=== PATIENT | female | born 1970 | race African-American/Black ===

== ENCOUNTER 2018-09-28 20:21 | Emergency (ER) | payer OTHER, SELFPAY ==
[2018-09-28 20:36] VITALS: BP 157/97; RESP 80; TEMP 36.6; O2SAT 100; BMI 33.8
--- NOTE | 2018-09-28 20:40 | DI.RAD.S_ITS ---
PROCEDURE: XR KNEE RT 3V INDICATIONS: chronic right knee pain, knee hits ladder prong at work TECHNIQUE: 3 views of the knee were acquired. COMPARISON: None. FINDINGS: Bones: No fractures or dislocations. No suspicious bony lesions. There are minimal tricompartmental degenerative changes as evidenced by osteophyte formation. Soft tissues: No joint effusion. No suspicious soft tissue calcifications. IMPRESSION: Minimal degenerative changes of the right knee, with no acute osseous abnormality identified. Consider followup radiographs in 7-10 days if there is continued clinical concern. Dictated by: Kavon Hyde M.D. on 09/28/2018 at 22:00 Approved by: Kavon Hyde M.D. on 09/28/2018 at 22:06
--- NOTE | 2018-09-28 21:29 | ED.EXTPRO ---
HPI - Extremity Problem General Chief complaint: Extremity Problem,Nontraumatic Stated complaint: RT KNEE PAIN, WANTS STD CHECK Time Seen by Provider: 09/28/18 21:29 Source: patient Mode of arrival: ambulatory Limitations: no limitations History of Present Illness HPI Narrative: 48-year-old female here for evaluation of right knee pain. she states she has had pain in her right knee for several weeks if not months now. She is here for a job at the [employer]. She states that she has been more time on her knees and going up and downstairs has started to have worsening pain in her knee. She is also concerned that she has been exposed to chlamydia. She is not having any symptoms. Has never had an STD in the past. Related Data Previous Rx's Medication Instructions Recorded meloxicam [Mobic] 7.5 mg PO DAILY #30 tab 09/28/18 Review of Systems Constitutional Denies fever(s) ENT Ears, Nose, Mouth, and Throat: Denies dizziness Cardiovascular Denies dyspnea Respiratory Denies dyspnea Gastrointestinal Gastrointestinal: Denies abdominal pain Genitourinary Comments: no urinary symptoms Musculoskeletal Comments: Right knee pain Integumentary/Breasts Denies rash Neurologic Denies dizziness Hematologic/Lymphatic Denies easy bleeding and Denies easy bruising PFSH Medical History Healthy adult (Acute) Social History Smoking Status: Never smoker Social History Smoking Status: Never smoker Exam Initial Vital Signs Initial Vital Signs: Vital Signs Temperature 97.9 F 09/28/18 20:36 Respiratory Rate 80 H 09/28/18 20:36 Blood Pressure 157/97 H 09/28/18 20:36 Pulse Oximetry 100 09/28/18 20:36 Const General: cooperative, healthy appearing, comfortable, well developed, well groomed and No acute distress Orientation: alert, awake and oriented x3 GI Inspection: non-distended Palpation: soft Skin Lesions: no lesions Rashes: no rashes Neuro General: alert, awake and oriented x3 Extrem General: normal to inspection and capillary refill normal Other: tenderness to palpation along the medial aspect of the right knee. ACL MCL PCL and LCL intact functional testing. Otherwise unremarkable exam of the knee Psych Appearance: grossly normal and well kempt Course Orders Ordered: ED Orders 09/28/18 20:40 XR knee RT 4V Stat 09/28/18 21:15 Urine Chlamydia Gonorrhea PCR Stat Vital Signs - 8 hr 09/28/18 23:08 Pulse Rate 80 Respiratory Rate 18 Blood Pressure 149/89 H Pulse Oximetry 98 MDM - Extremity (Nontraumatic) Lab Data Attestation: I reviewed the patient's lab results. Lab Results 09/28/18 Range/Units 21:15 Ur Chlamydia DNA (PCR) Not detected N gonorrhoeae DNA (PCR) Not detected Imaging Data x-ray knee: Radiologist's impression: [address] [address] XRay Report Signed Patient: ERICK LEHMAN [facility]#: [id number] : 1970Acct:[id number] Age/Sex: 48 / FDate of Service: 09/28/18 Loc: ED Accession Number: [id number] Procedure: XR knee RT 4V Ordering Provider: Luis Duncan D.O. PROCEDURE: XR KNEE RT 3V INDICATIONS: chronic right knee pain, knee hits ladder prong at work TECHNIQUE: 3 views of the knee were acquired. COMPARISON: None. FINDINGS: Bones: No fractures or dislocations. No suspicious bony lesions. There are minimal tricompartmental degenerative changes as evidenced by osteophyte formation. Soft tissues: No joint effusion. No suspicious soft tissue calcifications. IMPRESSION: Minimal degenerative changes of the right knee, with no acute osseous abnormality identified. Consider followup radiographs in 7-10 days if there is continued clinical concern. Dictated by: Kavon Hyde M.D. on 09/28/2018 at 22:00 Approved by: Kavon Hyde M.D. on 09/28/2018 at 22:06 [facility] Narrative Medical decision making narrative: unremarkable exam of the right knee. X-ray negative for fracture. GC and chlamydia are negative. Discussed all this with the patient. Patient was given return precautions. She expressed understanding agreement plan. Discharge Plan Departure Patient Disposition: Home Clinical Impression: Knee pain Qualifiers: Chronicity: acute Laterality: right Qualified Code(s): M25.561 - Pain in right knee Discharge Date/Time: 09/28/18 23:10 Interventions: ED Discharge Assessment Last Done: 09/28/18 23:08 Instructions: DI for Knee Pain Activity Restrictions/Additional Instructions: recommend you start taking the Mobic as directed. Contact your primary doctor when you return home to discuss the indications for an MRI. Return to the emergency department for any new or worsening symptoms Prescriptions: New meloxicam [Mobic] 7.5 mg tablet 7.5 mg PO DAILY Qty: 30 RF: 0
[2018-09-28 22:50] LABS: Urine N gonorrhoeae NOT DETECTED
[2018-09-28 22:54] LABS: Urine Chlamydia NOT DETECTED
[2018-09-28 23:08] VITALS: BP 149/89; PULSE 80; RESP 18; O2SAT 98
== END 2018-09-28 23:10 | disposition home or self-care (01) ==
PROVIDERS: Emergency Provider Emergency Medicine
DX: M25.561 Pain in right knee (principal)
CPT/HCPCS: 73564; 87491; 87591; 99282; 99283